=== PATIENT | male | born 1945 | race Asian ===

== ENCOUNTER 2018-12-24 07:08 | Day surgery (SDC) | payer MEDICARE ==
[~2018-12-24 07:08] MED LIST: Cefuroxime 10 MG/ML SYRINGE EYELF SCH; Lidocaine 1% PF 2 ML SDV INJECT SCH; Pilocarpine 4% Ophth Soln 15 ML Bot EYELF SCH
[2018-12-24] MEDS: Polymyxin B/Trimethoprim 10 ML Bottle EYELF SCH ×3 (07:16→08:37)
[2018-12-24] MEDS: Brimonidine 0.2% Ophth Soln 5 ML Bottle EYELF SCH ×3 (07:20→08:37)
[2018-12-24] MEDS: Phenylephrine 2.5% Ophth Soln 2 ML Bot EYELF SCH ×5 (07:24→08:14)
[2018-12-24] MEDS: Tropicamide 1% Ophth Soln 15 ML Bottle EYELF SCH ×4 (07:29→08:01)
--- NOTE | 2018-12-24 07:34 | PCM.PREANE ---
Preanesthetic Assessment - Procedure Proposed Procedure: Left Eye Extraction cataract with implant - Anesthesia/Transfusion/Family Hx Anesthesia History: No Prior Anesthesia Family History of Anesthesia Reaction: No Transfusion History: No Prior Transfusion(s) Intubation History: Unknown - Review of Systems General: No Symptoms Pulmonary: No Symptoms Cardiovascular: No Symptoms Gastrointestinal: Constipation Neurological: No Symptoms, Trouble Speaking (r/t stroke history, language deficit ) Other: Reports: Diabetes (oral medication controlled , deffered BS check this am ) - Physical Assessment NPO Status Date: 12/23/18 NPO Status Time: 21:00 Pulse: 60 O2 Sat by Pulse Oximetry: 98 Respiratory Rate: 16 Blood Pressure: 105/70 Temperature: 37.0 C Height: 1.57 m Weight: 63.503 kg ASA Class: 2 Mental Status: Alert & Oriented x3 Thyro-Mental Finger Breadths: 3 Mouth Opening Finger Breadths: 5 ROM/Head Extension: Full Lungs: Clear to Auscultation, Normal Respiratory Effort Cardiovascular: Regular Rate, Regular Rhythm - Allergies Allergies/Adverse Reactions: Allergies Allergy/AdvReac Type Severity Reaction Status Date / Time No Known Allergies Allergy Verified 12/23/18 13:04 - Blood Blood Available: No - Anesthesia Plan Pre-Op Medication Ordered: None - Acknowledgements Anesthesia Type Planned: MAC Pt an Appropriate Candidate for the Planned Anesthesia: Yes Alternatives and Risks of Anesthesia Discussed w Pt/Guardian: Yes Pt/Guardian Understands and Agrees with Anesthesia Plan: Yes Additional Comments: Assessment completed with daughter at bedside that helped translate for patient due to language barrier. 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) - HOME MEDS Home Medications: Home Meds Cholecalciferol (Vitamin D3) [Vitamin D3] 1,000 units PO DAILY 12/23/18 [History ] Clopidogrel [Plavix] 75 mg PO DAILY 12/23/18 [History] Cyanocobalamin/Folic Acid [Vitamin R81-Tnxrj Acid] 1 tab PO DAILY 12/23/18 [ History] Levothyroxine 75 mcg PO DAILY 12/23/18 [History] Triamcinolone Acetonide [Triamcinolone Acetonide 0.1% Crm] 1 applic TOP ASDIRECTED 12/23/18 [History] Valsartan 160 mg PO DAILY 12/23/18 [History] amLODIPine Besylate [Norvasc] 5 mg PO DAILY 12/23/18 [History] atorvaSTATin [Lipitor] 40 mg PO DAILY 12/23/18 [History] - CURRENT (IN HOUSE) MEDS Current Meds: Current Medications Brimonidine Tartrate (Alphagan 0.2% Ophth Soln) 0 ml EYELF ASDIRECTED PHOEBE Stop: 12/24/18 18:00 Last Admin: 12/24/18 07:20 Dose: 1 drop Cefuroxime Sodium (Zinacef) 0 mg EYELF ASDIRECTED PHOEBE Stop: 12/24/18 18:00 Lidocaine HCl (Xylocaine-Mpf 1%) 0 ml INJECT ASDIRECTED PHOEBE Stop: 12/24/18 18:00 Phenylephrine HCl (Fabian-Synephrine 2.5% Ophth Soln) 0 ml EYELF ASDIRECTED PHOEBE Stop: 12/24/18 18:00 Last Admin: 12/24/18 07:24 Dose: 1 drop Pilocarpine HCl (Pilocar 4% Ophth Soln) 0 ml EYELF ASDIRECTED PHOEBE Stop: 12/24/18 18:00 Polymyxin/Trimethoprim Sulfate (Polytrim Ophth Soln) 0 ml EYELF ASDIRECTED PHOEBE Stop: 12/24/18 18:00 Last Admin: 12/24/18 07:16 Dose: 1 drop Tetracaine HCl (Tetracaine 0.5% Steri-Unit Acacia) 0 ml EYELF ASDIRECTED PHOEBE Stop: 12/24/18 18:00 Tropicamide (Mydriacyl 1% Ophth Soln) 0 ml EYELF ASDIRECTED PHOEBE Stop: 12/24/18 18:00
[2018-12-24] MEDS: Tetracaine HCl/PF 0.5% 4 ML Bottle EYELF SCH ×2 (08:06→08:20)
--- NOTE | 2018-12-24 08:49 | PCM48HPAN ---
Post Anesthesia Note - EVALUATION WITHIN 48HRS OF ANESTHETIC Vital Signs in Normal Range: Yes Patient Participated in Evaluation: Yes Respiratory Function Stable: Yes Airway Patent: Yes Cardiovascular Function Stable: Yes Hydration Status Stable: Yes Pain Control Satisfactory: Yes Nausea and Vomiting Control Satisfactory: Yes Mental Status Recovered: Yes Pulse Rate: 60 SaO2: 99 Resp Rate: 16 Temperature: 37.0 C Blood Pressure: 105/70
== END 2018-12-24 08:50 | disposition home or self-care (01) ==
LOC: JD.SDS 07:08
PROVIDERS: ATTEND Ophthalmology
DX: E11.36 Type 2 diabetes mellitus with diabetic cataract (principal); H25.813 Combined forms of age-related cataract, bilateral; H21.42 Pupillary membranes, left eye; H21.81 Floppy iris syndrome; E11.3293 Type 2 diabetes mellitus with mild nonproliferative diabetic retinopathy without macular edema, bilateral; I10 Essential (primary) hypertension; Z86.73 Personal history of transient ischemic attack (TIA), and cerebral infarction without residual deficits; H35.033 Hypertensive retinopathy, bilateral; H02.831 Dermatochalasis of right upper eyelid; Z79.84 Long term (current) use of oral hypoglycemic drugs; Z79.02 Long term (current) use of antithrombotics/antiplatelets; Z79.899 Other long term (current) drug therapy; Z79.890 Hormone replacement therapy
CPT/HCPCS: 66982; A9270; C1780; J0697; J2001